=== PATIENT | female | born 1995 | race Caucasian/White ===

== ENCOUNTER 2016-12-01 19:32 | Emergency (ER) | payer MEDICAID, OTHER ==
[~2016-12-01] VITALS: Ht 165.1 cm; Wt 49.9 kg
[~2016-12-01 19:32] MED LIST: CALC500T24 PO; CODE-54 PO; DCS100C PO; FRS325T PO; IBP600T1 PO; NAPR-243 PO; PREN1TAB71 PO
--- OUTSIDE RECORDS SUMMARY | 2016-12-01 19:37 | XMS REPORT | Continuity of Care Document ---
Author Author [facility] Address Unknown Phone Unavailable Allergies Active Description Code Type Severity Reaction Onset Reported/Identified Relationship to Patient Clinical Status Yes No Known Drug Allergies [id number] Drug Allergy Unknown N/ A 07/22/2012 Medications Problems Date Dx Coded Attending Type Code Diagnosis Diagnosed By 08/08/2009 TRAV ERICKSON APRN A 309.28 AD ADJ D/O W ANX DEP MOOD 08/08/2009 VINCENZO COBB APRNYL A 309.28 AD ADJ D/O W ANX DEP MOOD 08/08/2009 JORDYN CARDOZO ARUNA A 309.28 AD ADJ D/O W ANX DEP MOOD 03/13/2010 RYAN ERICKSON APRNIDI A 309.4 AD ADJ D/O W DIST OF EMOT 03/13/2010 JORDYN CARDOZO ARUNA A 309.4 AD ADJ D/O W DIST OF EMOT 03/13/2010 JORDYN CARDOZO ARUNA A 309.4 AD ADJ D/O W DIST OF EMOT 07/23/2012 Ot 564.00 07/23/2012 Ot 789.09 01/18/2014 RYAN ERICKSON APRNIDI A V72.42 EXAMINATION OR TEST POSITIVE RESULT 01/18/2014 JORDYN CARDOZO ARUNA A V72.42 EXAMINATION OR TEST POSITIVE RESULT 01/18/2014 JORDYN CARDOZO ARUNA A V72.42 EXAMINATION OR TEST POSITIVE RESULT 01/19/2014 GEORGINA CARDOZO TRAV A V22.0 , NORMAL FIRST 01/19/2014 JORDYN CARDOZO ARUNA A V22.0 , NORMAL FIRST 01/19/2014 JORDYN CARDOZO ARUNA A V22.0 , NORMAL FIRST 03/30/2014 JORDYN CARDOZO ARUNA A V22.2 INCIDENTAL 03/30/2014 JORDYN CARDOZO ARUNA A V70.0 ROUTINE GENERAL MEDICAL EXAMINATION AT A HEALTH CARE FACILITY 03/30/2014 ARUNA COBB APRN V74.1 SCREENING EXAMINATION FOR PULMONARY TUBERCULOSIS 03/30/2014 ARUNA COBB APRN V22.2 INCIDENTAL 03/30/2014 ARUNA COBB APRN V70.0 ROUTINE GENERAL MEDICAL EXAMINATION AT A [facility]ARE [facility]AC[facility] 03/30/2014 ARUNA COBB APRN V74.1 SCREENING EXAMINATION FOR PULMONARY TUBERCULOSIS 09/09/2014 Ot 787.03 09/09/2014 Ot 789.00 09/09/2014 Ot 789.00 09/10/2014 AJAY HAWKINS DO S Ot 661.01 09/10/2014 AJAY HAWKINS DO Ot V27.0 09/27/2014 Ot 787.03 09/27/2014 Ot 789.00 09/27/2014 Ot 789.00 09/27/2014 Ot 787.03 09/27/2014 Ot 789.00 09/27/2014 Ot 789.00 10/15/2014 Ot 787.03 10/15/2014 Ot 789.00 10/15/2014 Ot 789.00 Procedures Code [place] [address] TEST, URINE (IN-HOUSE) 01/18/2014 62430 UA LONG DIP 01/19 85448 TB TEST INTRADERMAL 03/30/2014 90252 URINE DRUG SCREEN (IN-HOUSE) 03/30/2014 Results Encounters ACCT No. Visit Date/Time Discharge Status Pt. Type Provider Facility Loc./Unit Complaint [id number] 03/30/2014 14:39:00 03/30/2014 23: 59:59 CLS Outpatient ARUNA COBB APRN [id number] 03/30/2014 14:39:00 03/30/2014 23: 59:59 CLS Outpatient ARUNA COBB APRN [id number] 01/19/2014 13:53:00 01/19/2014 23: 59:59 CLS Outpatient TRAV ERICKSON APRN
[2016-12-01] MEDS ORDERED: OSLT75C (19:49)
[2016-12-01] MEDS ORDERED: AMIT50TA3 (19:49)
[2016-12-01] MEDS ORDERED: TRAZ-28 (19:49)
[2016-12-01] MEDS ORDERED: PARO20TA5 PO (19:49)
[2016-12-01] MEDS ORDERED: NYST1000 PO (20:08)
--- NOTE | 2016-12-01 20:08 | ED EENT ---
History of Present Illness General Chief Complaint: Oral/Throat Problems Stated Complaint: TOUNGUE REDNESS, PAIN Nursing Triage Note: C/O TONGUE HURTING X 3 DAYS Source: patient Exam Limitations: no limitations History of Present Illness Time seen by provider: 19:37 Initial Comments This 21-year-old young lady presents to the emergency room with complaints of severe tongue pain. She reports it "feels on fire". She reports her 2-year- old was recently diagnosed with influenza B and she was started on Tamiflu on . She believes the tongue pain started prior to that. The tongue pain has been present for 3 days. She has found no specific triggers but does drink hot coffee and hot lavender tea. She has also been taking Hankinson's wort. She denies any other symptoms. After the pain started, she began swishing peroxide up to 7 times per day. She complains of significant pain with use of peroxide. She also has been using hot salt water rinses. Pain seems to be getting worse. Allergies and Home Medications Allergies Coded Allergies: No Known Drug Allergies (Unverified , 07/22/12) Home Medications Amitriptyline HCl 50 Mg Tablet #30 (Reported) Nystatin 100,000 Unit/1 Ml Oral.susp #120 5 ML PO QID swish for at least 30 seconds and swallow Prescribed by: BAKARI PETERSON on 12/01/162007 Oseltamivir Phosphate 75 Mg Cap #10 (Reported) Paroxetine HCl 20 Mg Tablet #30 40 MG PO DAILY (Reported) Trazodone HCl 50 Mg Tablet #30 (Reported) Review of Systems Constitutional: no symptoms reported Eyes: No Symptoms Reported Ears: No Symptoms Reported Nose: no symptoms reported Mouth: see HPI Throat: no symptoms reported Respiratory: no symptoms reported Cardiovascular: no symptoms reported Gastrointestinal: no symptoms reported Musculoskeletal: no symptoms reported Skin: no symptoms reported Neurological: No Symptoms Reported Past Nqyyfbq-Kgnpgv-Lyjzxp Hx Patient Social History Alcohol Use: Regular Use Recreational Drug Use: No Smoking Status: Never a Smoker Recent Foreign Travel: No Contact w/Someone Who Travel: No Recent Infectious Disease Expo: No Recent Hopitalizations: No Immunizations Up To Date Date of Influenza Vaccine: Jul 27, 2014 Surgeries HX Surgeries: No Respiratory Hx Respiratory Disorders: No Cardiovascular Hx Cardiac Disorders: No Neurological Hx Neurological Disorders: No Reproductive System Hx Reproductive Disorders: No Sexually Transmitted Disease: No Genitourinary Hx Genitourinary Disorders: No Gastrointestinal Hx Gastrointestinal Disorders: No Musculoskeletal Hx Musculoskeletal Disorders: No Endocrine Hx Endocrine Disorders: No HEENT HX ENT Disorders: No Cancer Hx Cancer: No Psychosocial Hx Psychiatric Problems: No Integumentary HX Skin/Integumentary Disorder: No Blood Transfusions Hx Blood Disorders: No Family Medical History Family Medial History: Cardiovascular disease MATERNAL GRANDFATHER FH: cancer 19 MOTHER MATERNAL GRANDFATHER MATERNAL GREAT GRANDFATHER Physical Exam Vital Signs Vital Sign - Last 12Hours 12/01/16 19:45 Temp 99.2 Pulse 94 Resp 18 B/P 113/70 Pulse Ox 98 O2 Delivery Room Air General Appearance: WD/WN no apparent distress Eyes: bilateral eye EOMI, bilateral eye PERRL, bilateral eye normal inspection Ears: bilateral ear TM normal, bilateral ear auricle normal, bilateral ear canal normal Nose: normal inspection Mouth/Throat: other (leukoplakia of the buccal mucosa bilaterally. Mild erythema of the tongue. Large white papilla on the underside of the tongue indicative of papillitis) Neck: supple normal inspection Cardiovascular: regular rate, rhythm no edema no murmur Respiratory: lungs clear normal breath sounds no respiratory distress no accessory muscle use Neurologic/Psychiatric: roving hauler II-XII nml as tested no motor/sensory deficits alert normal mood/affect oriented x 3 Skin: normal color warm/dry Progress/Results/Core Measures Results/Orders Lab Results Laboratory Tests Test 12/01/16 19:57 Range/Units Group A Streptococcus Screen NEGATIVE NEGATIVE My Orders Orders-BAKARI HORN MD Rapid Strep A Screen (12/01/16 19:36) Lidocaine 2% Viscous 15 Ml (Xylocaine Vi (12/01/16 20:15) Medications Given in ED Current Medications Medications Dose Ordered Sig/Alex Route Start Time Stop Time Status Last Admin Dose Admin Lidocaine HCl 5 ml ONCE ONCE PO 12/01/16 20:15 12/01/16 20:16 DC 12/01/16 20:24 5 ML Vital Signs/I&O Vital Sign - Last 12Hours 12/01/16 12/01/16 19:45 20:29 Temp 99.2 99.2 Pulse 94 94 Resp 18 18 B/P 113/70 Pulse Ox 98 98 O2 Delivery Room Air Blood Pressure Mean: 84 Progress Note : Progress Note Patient was provided with viscous lidocaine with cautions for use. Rapid strep test was negative. Departure Impression Impression: Primary Impression: Transient lingual papillitis Additional Impression: Tongue pain Disposition: 01 HOME, SELF-CARE Condition: Improved Departure-Patient Inst. Decision time for Depature: 20:00 Referrals: RYAN CUNNINGHAM DO (PCP/Family) Primary Care Physician Patient Instructions: NO INSTRUCTIONS GIVEN Add. Discharge Instructions: Your rapid strep test was negative. Avoid using or consuming anything irritating to the mouth such as mouth wash, peroxide, acidic or citrusy foods, tomato products, spicy foods, alcohol, hot foods, etc. [place] your teeth with gentleness and caution. Do not over brush. Avoid brushing your tongue until pain resolves. You may swish with small quantities of the Viscous Lidocaine to numb your tongue for comfort tonight. Eat and drink carefully after use of lidocaine so as to not choke or burn your mouth or tongue. If symptoms are not improving by tomorrow, fill the nystatin swish and swallow. Return to care if symptoms worsen or are not improving after a couple of days. Eat a bland diet and a mechanically soft diet until symptoms resolve. All discharge instructions reviewed with patient and/or family. Voiced understanding. Scripts Nystatin 100,000 Unit/1 Ml Oral.susp5 Ml PO QID #120 ML swish for at least 30 seconds and swallow Prov:BAKARI HORN MD 12/01/16 BAKARI HORN MD Dec 01, 2016 20:08
[2016-12-01] MEDS ORDERED: LIDOCAINE 2% VISCOUS 15 ML UDC PO ONE (20:15)
[2016-12-01 20:29] VITALS: BP 113/70
== END 2016-12-01 20:28 | disposition home or self-care (01) ==
LOC: EDUNIT# 19:32 → ER 19:33
DX: K14.0 Glossitis (principal)
CPT/HCPCS: 87430; 99283